=== PATIENT | female | born 1970 | race Caucasian/White ===

== ENCOUNTER 2020-04-22 20:15 | Emergency (ER) | payer OTHER ==
[~2020-04-22] VITALS: Ht 162.6 cm; Wt 52.2 kg
[2020-04-22] MEDS ORDERED: WELLBUTRIN XL300 MG PO (20:27)
[2020-04-22] MEDS ORDERED: HYDROCODON-ACE1 EAC7 PO (22:58)
[2020-04-22] MEDS ORDERED: KEFLEX500 M1 PO (22:58)
[2020-04-22 23:54] VITALS: BP 132/70
[2020-04-24 05:36] LABS: HBsAG-EMPLOYEE EXPOSURE Negative (Negative)
== END 2020-04-22 23:55 | disposition home or self-care (01) ==
LOC: M.ERS 20:15
PROVIDERS: Personal Emergency Response Attendant
DX: S81.811A Laceration without foreign body, right lower leg, initial encounter (principal); W54.0XXA Bitten by dog, initial encounter; Y93.89 Activity, other specified; Y92.89 Other specified places as the place of occurrence of the external cause; Y99.8 Other external cause status

== ENCOUNTER → 2020-06-06 | Outpatient (CLI) | payer OTHER ==
[~2020-06-06] MED LIST: HYDROCODON-ACE1 EAC7 PO; KEFLEX500 M1 PO; WELLBUTRIN XL300 MG PO
== END ==
LOC: M.WC 08:37
PROVIDERS: ATTEND Surgery
DX: T81.33XA Disruption of traumatic injury wound repair, initial encounter (principal); S81.851A Open bite, right lower leg, initial encounter; I73.00 Raynaud's syndrome without gangrene; F17.200 Nicotine dependence, unspecified, uncomplicated; F32.9 Major depressive disorder, single episode, unspecified; W54.0XXA Bitten by dog, initial encounter; Y93.89 Activity, other specified; Y92.89 Other specified places as the place of occurrence of the external cause; Y99.8 Other external cause status; Y83.8 Other surgical procedures as the cause of abnormal reaction of the patient, or of later complication, without mention of misadventure at the time of the procedure; Y92.238 Other place in hospital as the place of occurrence of the external cause

== ENCOUNTER → 2020-06-20 | Outpatient (CLI) | payer OTHER | LOC: M.WC 08:24 | PROVIDERS: ATTEND Surgery | DX: T81.33XD Disruption of traumatic injury wound repair, subsequent encounter (principal); S81.851D Open bite, right lower leg, subsequent encounter; I73.00 Raynaud's syndrome without gangrene; F17.200 Nicotine dependence, unspecified, uncomplicated; F32.9 Major depressive disorder, single episode, unspecified; W54.0XXD Bitten by dog, subsequent encounter; Y83.8 Other surgical procedures as the cause of abnormal reaction of the patient, or of later complication, without mention of misadventure at the time of the procedure ==

== ENCOUNTER → 2020-06-27 | Outpatient (CLI) | payer OTHER | LOC: M.WC 09:09 | PROVIDERS: ATTEND Surgery | DX: T81.33XD Disruption of traumatic injury wound repair, subsequent encounter (principal); S81.851D Open bite, right lower leg, subsequent encounter; I73.00 Raynaud's syndrome without gangrene; F17.200 Nicotine dependence, unspecified, uncomplicated; F32.9 Major depressive disorder, single episode, unspecified; W54.0XXD Bitten by dog, subsequent encounter; Y83.8 Other surgical procedures as the cause of abnormal reaction of the patient, or of later complication, without mention of misadventure at the time of the procedure ==

== ENCOUNTER → 2020-07-11 | Outpatient (CLI) | payer OTHER | LOC: M.WC 11:00 | PROVIDERS: ATTEND Surgery | DX: T81.33XD Disruption of traumatic injury wound repair, subsequent encounter (principal); I73.00 Raynaud's syndrome without gangrene; F32.9 Major depressive disorder, single episode, unspecified; F17.200 Nicotine dependence, unspecified, uncomplicated; Y83.8 Other surgical procedures as the cause of abnormal reaction of the patient, or of later complication, without mention of misadventure at the time of the procedure ==